=== PATIENT | male | born 1960 | race Caucasian/White ===

== ENCOUNTER 2018-09-21 05:55 | Inpatient (IN) | payer OTHER | END 2018-09-22 15:50 | disposition home or self-care (01) | LOC: SUR 05:55 → TELE-CENTR 19:45 | PROC: 0PSJ04Z Reposition Left Radius with Internal Fixation Device, Open Approach (ICD-10-PCS; principal; 2018-09-21 07:05) | DX: S52.92XA Unspecified fracture of left forearm, initial encounter for closed fracture (principal) ==

== ENCOUNTER 2023-11-27 01:14 | Emergency (ER) | payer OTHER ==
[~2023-11-27] VITALS: Ht 175.3 cm; Wt 84.0 kg
[~2023-11-27 01:14] MED LIST: ACET-1304 PO; AML5T PO; DIPH25CA66 PO; MET50T PO; METF-370 PO; SITA100T7 PO
[2023-11-27] MEDS: DexAMETHasone SOD PHOS 10MG/1ML VIAL INJ IM ONE (03:04)
[2023-11-27] MEDS ORDERED: PRED20TA2 PO (03:46)
[2023-11-27 04:15] VITALS: BP 177/102; PULSE 64; RESP 18; TEMP 98.2; O2SAT 98
== END 2023-11-27 04:18 | disposition home or self-care (01) ==
LOC: ER 01:14
DX: J06.9 Acute upper respiratory infection, unspecified (principal); E11.9 Type 2 diabetes mellitus without complications; I10 Essential (primary) hypertension
CPT/HCPCS: 71045; 82962; 96372; 99283; J1100